=== PATIENT | female | born 1990 | race Caucasian/White ===

== ENCOUNTER 2016-08-21 17:00 | Inpatient (IN) | payer OTHER ==
--- NOTE | ~2016-08-21 | PA ---
Unit #: [id number] #: [id number] Patient: LETICIA SUBRAMANIAN [id number] [facility] [address] [place] [address] [id number] I MR#: [id number] NAME: LETICIA SUBRAMNAIAN. ROOM: P203 Age: 25 Sex: F Admission Date: 08/21/2016 : 1990 Date of Assessment: 08/22/2016 Attending Physician: Justin Marcos M.D. Admitting Physician: Justin Marcos M.D. Primary Care Physician: Funmi Weiner M.D. PSYCHIATRIC ASSESSMENT INFORMANTS The patient reliability, fair informant and chart reliability, good. CHIEF COMPLAINT Depression. HISTORY OF PRESENT ILLNESS Ms. Leticia Subramanian is a 25-year-old female, presented with the above-mentioned complaint. The patient has a history of previous treatment inpatient in 2008 for suicidal ideation. Currently, homeless. Reports feeling sad and depressed. The patient seems to have poor insight into her problems at this time, presented with a history of cocaine use today and heroin abuse. The patient seemed somewhat anxious, sad, depressed, and restless. The patient's speech was slow, thought blocking, guarded, and paranoid. Denied any suicidal ideation or any homicidal ideation, but guarded and paranoid. The patient has a history of suicide attempt at age 15 and 17. Needing inpatient admission at this time for psychiatric stabilization. PAST PSYCHIATRIC HISTORY Remarkable for history of previous treatment in 2008. SOCIAL HISTORY The patient has poor support system. No history of abuse. MEDICAL HISTORY Unremarkable. MEDICATION HISTORY None. ALLERGIES No known drug allergies. SUBSTANCE ABUSE HISTORY The patient admitted using cocaine and heroin. Tobacco use, age of onset 13; crack cocaine, age of onset 16; LSD, age of onset 18; opioid, age of onset 20; and amphetamine, age of onset 19. The patient reported history of blackout and IV drug abuse. Currently, reporting irritability, sleep problem, and depressed mood. REVIEW OF SYSTEMS HEENT: Eyes, clear. Ears, nose, mouth, and throat; clear. Unit #: [id number] #: [id number] Patient: LETICIA SUBRAMANIAN CARDIOVASCULAR: Unremarkable. RESPIRATORY: Unremarkable. GI: Unremarkable. : Unremarkable. SKIN: Unremarkable. LYMPH NODE: Unremarkable. NEUROLOGIC: Unremarkable. ENDOCRINE: Unremarkable. HEMATOLOGIC: Unremarkable. ALLERGIC/IMMUNOLOGIC: Unremarkable. MUSCULOSKELETAL: Muscle strength and tone, no atrophy or abnormal movement. Gait normal. MENTAL STATUS EXAMINATION CONSTITUTIONAL: Measurement of vital signs; temperature 98.6, heart rate 85, oxygen saturation 100%, and blood pressure 124/83. Height 5 feet 4 inches and weight 151 pounds. GENERAL APPEARANCE: The patient dressed casually. The patient did not show any facial deformity. MUSCULOSKELETAL: Please see above. PSYCHIATRIC EXAMINATION Description of speech; regular rate, normal volume, normal articulation, and coherent. Description of thought process, goal directed. Description of association, intact. Description of abnormal psychotic thinking; the patient denied any hallucinations or delusions, but guarded, paranoid, sad, and depressed. Description of the patient's judgment: Concerning everyday activity, poor. Social situation, poor. Concerning psychiatric condition, poor. Complete mental status examination; oriented in time, place, and person. Attention span and concentration, poor. Language, intact. Recent and remote memory, fair. Fund of knowledge, fair. Vocabulary, fair. Mood and affect, sad and dysphoric. Insight and judgment, fair to poor. ASSETS AND LABILITIES Assets, the patient is articulate and able to take care of her ADL. Liability; history of depression, psychosis, and substance abuse. ADMITTING DIAGNOSES Psychiatric: Major depressive disorder, recurrent, severe, F33.2 and cocaine use disorder, severe, F14.20. Secondary diagnosis: Deferred. Medical diagnosis: None. Stressors: Psychosocial stressors. PSYCHIATRIC PLAN AND TREATMENT GOAL AND DISCHARGE PLAN 1. Advised to admit the patient on the inpatient unit. Provide safe, supportive, and structured environment. 2. Ordered labs; CBC, CMP, UA, UDS, and test. 3. Precaution for aggression, self-harm, and psychosis precaution. 4. The patient to attend all the programing. Plan to consider medication such as Celexa for depression. TREATMENT GOAL Unit #: [id number] #: [id number] Patient: LETICIA SUBRAMANIAN To attain euthymic mood, gain insight into her problem, and learn coping skills. DISCHARGE PLAN Plan to stabilize the patient and consider followup in outpatient program. ESTIMATED LENGTH OF STAY 3 to 5 days. Dictated by... Justin Marcos M.D. SWETA/alvina TD: 08/22/2016 18:06 JOB #: [id number] PSYCHIATRIC ASSESSMENT Page 1 of 1 X Justin Marcos MD PSYCHIATRIC ASSESSMENT
--- NOTE | ~2016-08-21 | DS ---
Unit #: [id number] #: [id number] Patient: LETICIA SUBRAMANIAN [id number] [facility] [address] [place] [address] [id number] I MR#: [id number] NAME: LETICIA SUBRAMANIAN. ROOM: P203 Age: 25 Sex: F Admission Date: 08/21/2016 : 1990 Discharge Date: 08/26/2016 Attending Physician: Justin Marcos M.D. Primary Care Physician: Funmi Weiner M.D. DISCHARGE SUMMARY REASON FOR ADMISSION Depression and chemical dependency. DIAGNOSTIC STUDIES LABORATORY RESULTS: Unremarkable. HOSPITAL COURSE The patient was admitted to inpatient unit on 08/21/2016 and discharged on 08/26/2016. The patient was treated with group therapy, individual therapy, medication management. The patient was responsive to treatment, showed improvement. Subsequently, the patient was discharged with a plan to follow up in outpatient program. DISCHARGE MEDICATIONS Celexa 20 mg daily for depression, trazodone 50 mg at bedtime for sleep, and Vistaril 25 mg b.i.d. for anxiety. DISCHARGE DIAGNOSES Psychiatric: Major depressive disorder, recurrent, severe, F33.2; cocaine use disorder, severe, F14.20. Secondary diagnosis: Deferred. Medical diagnosis: None. Stressors: Psychosocial stressors. DISCHARGE INSTRUCTIONS The patient to follow up in outpatient clinic as per social media intern. CONDITION ON DISCHARGE The patient was pleasant and cooperative. Denied any psychotic symptom or any suicidal ideation. PROGNOSIS Guarded. DIET AND ACTIVITY As tolerated. Dictated by... Justin Marcos M.D. Unit #: [id number] #: [id number] Patient: LETICIA SUBRAMANIAN SZC/modl TD: 08/27/2016 14:05 JOB #: [id number] DISCHARGE SUMMARY Page 1 of 1 X Justin Marcos MD X DISCHARGE SUMMARY
--- NOTE | ~2016-08-21 | HP ---
Unit #: [id number] #: [id number] Patient: LETICIA SUBRAMANIAN [id number] [facility] [address] [place] [address] [id number] I MR#: [id number] NAME: LETICIA SUBRAMANIAN. ROOM: P203 Age: 25 Sex: F Admission Date: 08/21/2016 : 1990 Attending Physician: Justin Marcos M.D. Admitting Physician: Justin Marcos M.D. Primary Care Physician: Funmi Weiner M.D. HISTORY AND PHYSICAL HISTORY OF PRESENT ILLNESS Leticia is a 25 year old admitted to [address] [place] [address] for unknown reasons. She is uncooperative and allusive with her answers. She does tell me that she was "counseled" to say certain things to get in here. PAST MEDICAL HISTORY History of illicit substance abuse. PAST SURGICAL HISTORY Nothing reported. ALLERGIES No known drug allergies. SOCIAL HISTORY Smokes 1 pack per day. Drinks alcohol frequently and admits to a history of illicit substance abuse but will not elaborate. FAMILY HISTORY Medically noncontributory. REVIEW OF SYSTEMS She refuses to answer any questions. CURRENT MEDICATIONS 1. Detox protocol. 2. Celexa 20 mg daily. 3. Desyrel 50 mg q.h.s. PHYSICAL EXAMINATION GENERAL: Alert, well-nourished, in no apparent distress. VITAL SIGNS: Blood pressure 124/82, heart rate 80, respirations 16, temperature 98.6. WEIGHT: 151. HEIGHT: 5 feet 4 inches. SKIN: Warm and dry without rash or lesion. HEENT: Normocephalic. TMs not viewed. Oral and nasal passages clear. Conjunctivae clear. PERRLA. EOMs intact. NECK: Supple without lymphadenopathy or thyromegaly. HEART: Regular rate and rhythm without murmur. LUNGS: Clear. ABDOMEN: Soft, nontender. : Not done. Unit #: [id number] #: [id number] Patient: LETICIA SUBRAMANIAN EXTREMITIES: No evidence of cyanosis, clubbing or edema. Moves all without focal deficit. NEUROLOGICAL: Unable to complete extended exam. She does move all extremities without focal deficit. Gait is normal. IMPRESSION Psychiatric admission. RECOMMENDATIONS PSYCHIATRIC: Per psychiatrist. MEDICAL: See no contraindications to participate in facility's activities. MEDICAL PROGNOSIS Good. MEDICAL CONDITION Stable. Dictated by... Sophia Deleon P.A.-C. for Mac Foster/jeanne TD: 08/22/2016 19:41 JOB #: [id number] HISTORY AND PHYSICAL Page 1 of 1 X Sophia Deleon X HISTORY AND PHYSICAL
--- NOTE | ~2016-08-21 | PN ---
Unit #: [id number] #: [id number] Patient: LETICIA ROSS [id number] [facility] [address] [place] [address] [id number] I MR#: [id number] NAME: LETICIA ROSS. ROOM: P203 Age: 25 Sex: F Admission Date: 08/21/2016 : 1990 Attending Physician: Justin Marcos M.D. Admitting Physician: Justin Marcos M.D. Primary Care Physician: Mac Horton PROGRESS NOTES DATE OF SERVICE 08/23/16 DISCUSSION Ms. Leticia Ross is a 25-year-old female. Patient interviewed, chart reviewed, I obtained information from nursing staff. Patient tolerating medication fairly well, withdrawn, isolative, guarded, flat affect. Patient reports that she was using drugs prior to coming to the hospital; patient still having some disorganized thought process, guarded, paranoid. COMPLETE REVIEW OF SYSTEMS Unremarkable. MENTAL STATUS EXAMINATION GENERAL APPEARANCE: Patient dressed casually. ATTENTION SPAN AND CONCENTRATION: Fair. Oriented in time, place and person. MOOD AND AFFECT: Sad, dysphoric, flat. SPEECH: Monotone. THOUGHT PROCESS: Kathryn. Patient denied any thoughts of harming self or others, but guarded. RECENT AND REMOTE MEMORY: Poor. INSIGHT AND JUDGMENT: Poor. DIAGNOSES Mood disorder, NOS Cannabis abuse disorder, moderate ASSESSMENT/PLAN Advised to continue with current medication and therapeutic protocol. If needed, consider further adjustment in medication. Dictated by... Mac Crockett/miya TD: 08/24/2016 12:58 JOB #: [id number] Unit #: [id number] #: [id number] Patient: LETICIA ROSS ISABELLE PROGRESS NOTES Page 1 of 1 X Justin Marcos MD X PROGRESS NOTE
--- NOTE | ~2016-08-21 | PN ---
Unit #: [id number] #: [id number] Patient: LETICIA SUBRAMANIAN [id number] [facility] [address] [place] [address] [id number] MR#: [id number] NAME: LETICIA SUBRAMANIAN ROOM: P203 Age: 25 Sex: F Admission Date: 08/21/2016 : 1990 Attending Physician: Justin Marcos M.D. Admitting Physician: Justin Marcos M.D. Primary Care Physician: Mac Horton PROGRESS NOTES DATE 08/24/2016 DISCUSSION Leticia is a 25-year-old female seen on 08/24/2016. The patient interviewed, chart reviewed. Obtained information from nursing staff. The patient was compliant and cooperative. Mood sad, dysphoric, flat affect but making progress. No side effects from medication. Complete review of systems unremarkable. MENTAL STATUS EXAMINATION General appearance, the patient dressed casually. Attention span and concentration fair. Oriented to place and person. Mood and affect labile. Speech monotone. Thought process concrete. The patient denied any thoughts of harming self or others. Recent and remote memory poor. Insight and judgement poor. DIAGNOSES Bipolar mood disorder NOS ASSESSMENT/PLAN Advise to continue with current medication and therapeutic protocol. If needed consider further adjustment of medication. Dictated by... Mac Crockett/dalila TD: 08/27/2016 01:35 JOB #: [id number] ISABELLE PROGRESS NOTES Page 1 of 1 X Justin Marcos MD PROGRESS NOTE
--- NOTE | ~2016-08-21 | PN ---
Unit #: [id number] #: [id number] Patient: LETICIA ROSS [id number] [facility] [address] [place] [address] [id number] MR#: [id number] NAME: LETICIA ROSS. ROOM: P203 Age: 25 Sex: F Admission Date: 08/21/2016 : 1990 Attending Physician: Justin Marcos M.D. Admitting Physician: Justin Marcos M.D. Primary Care Physician: Mac Horton PROGRESS NOTES DATE OF SERVICE: 08/25/2016 DISCUSSION Ms. Shikha Ross is a 25-year-old female, seen on 08/25/2016. The patient interviewed, chart reviewed, and obtained information from nursing staff. The patient is tolerating medication fairly well. Compliant, cooperative. Affect, bright. Mood, good. Able to maintain safe behavior. Vital signs stable; 97.4, 81, 109/74. Complete review of systems unremarkable. MENTAL STATUS EXAMINATION General appearance, the patient dressed casually. Attention span and concentration, fair. Oriented in place and person. Mood and affect, labile. Speech, monotone. Thought process, concrete. The patient denied any thoughts of harming self or others. Recent and remote memory, poor. Insight and judgment, poor. DIAGNOSIS Mood disorder, not otherwise specified. ASSESSMENT AND PLAN Advised to continue with current medication and therapeutic protocol. If needed, consider further adjustment of medication. Dictated by... Mac Crockett/alvina TD: 08/26/2016 15:00 JOB #: [id number] Unit #: [id number] #: [id number] Patient: LETICIA ROSS ISABELLE PROGRESS NOTES Page 1 of 1 X Justin Marcos MD PROGRESS NOTE
[~2016-08-21 17:00] MED LIST: FLEXERIL10 MG PO; IBUPROFEN800 MG PO; MEDROL DOSEPAK4 MG PO
[2016-08-22 09:40] LABS: BASOPHIL# 0.1 X10e3 (0-0.3); EOSINOPHIL# 0.3 X10e3 (0-0.7); LYMPHOCYTE# 3.3 X10e3 (1.0-3.5); LYMPHOCYTE% 42.4 % (17.0-45.0); MEAN CELL VOLUME 92.7 FL (83-96); MEAN CORPUSCULAR HEMOGLOBIN 30.1 PG (28-34); MEAN CORPUSCULAR HGB CONC 32.5 g/dL (30-36); MEAN PLATELET VOLUME 8.9 FL (6.5-11.5); MONOCYTE# 0.7 X10e3 (0-1.0); MONOCYTE% 9.3 % (3.0-12.0); NEUTROPHIL# 3.4 X10e3 (1.5-7.1); NEUTROPHIL% 43.3 % (40-75); PLATELET COUNT 232 X10e3 (140-420); RED BLOOD COUNT 4.63 X10e (3.90-5.30); RED CELL DISTRIBUTION WIDTH 13.9 % (11.0-15.5); WHITE BLOOD COUNT 7.7 X10e3 (4.0-10.5)
[2016-08-22 10:05] LABS: DIFF IND NO
[2016-08-22 10:22] LABS: BILIRUBIN,TOTAL 0.6 mg/dL (0.2-2.0); BUN/CREATININE RATIO 18.57; CALCIUM SERUM 9.4 mg/dL (8.4-10.2); CREATININE SERUM 0.7 mg/dL (0.6-1.4); GLOM FILT RATE Estimated 121.3 mL/min (>60); POTASSIUM 4.4 mmol/L (3.5-5.1); PROTEIN TOTAL SERUM 6.5 g/dL (6.0-8.3)
[2016-08-24 11:31] LABS: URINE APPEARANCE CLEAR; URINE BILIRUBIN NEG (NEG); URINE BLOOD NEG (NEG); URINE COLOR YELLOW; URINE GLUCOSE NEG (NEG); URINE KETONE NEG (NEG); URINE LEUKOCYTE ESTERASE TRACE (NEG); URINE NITRATE NEG (NEG); URINE PROTEIN NEG (NEG); URINE SPECIFIC GRAVITY 1.022 (1.003-1.035); URINE UROBILINOGEN 0.2 MG/DL (NEG)
[2016-08-24 11:36] LABS: URBCS1 AUWI 0-2 /[HPF] (0-2); URINE BACTERIA AUWI NEG (NEGATIVE); URINE SQUAMOUS EPITHELIAL CELL NONE SEEN /[HPF]
[2016-08-24 12:22] LABS: AMPHETAMINE NEG (NEG); BARBITURATES NEG (NEG); BENZODIAZEPINES NEG (NEG); COCAINE NEG (NEG); MARIJUANA NEG (NEG); OPIATES NEG (NEG); TRICYCLIC ANTIDEPRESSANTS NEG (NEG); U METHADONE NEG (NEG)
== END 2016-08-26 14:51 | disposition home or self-care (01) | DRG 885 ==
LOC: P2S 19:49
PROVIDERS: Psychiatry & Neurology Psychiatry
DX: F33.2 Major depressive disorder, recurrent severe without psychotic features (principal); F14.20 Cocaine dependence, uncomplicated
CPT/HCPCS: 80053; 80307; 81003; 84703; 85025